=== PATIENT | female | born 2000 | race Caucasian/White ===

== ENCOUNTER 2021-07-11 15:16 | Emergency (ER) | payer SELFPAY ==
[~2021-07-11] VITALS: Ht 162.6 cm; Wt 94.5 kg
[2021-07-11 15:50] VITALS: TEMP 98.2
[2021-07-11] MEDS ORDERED: INDERAL 10MG10 MG PO (15:54)
[2021-07-11] MEDS ORDERED: PROZAC40 MG PO (15:54)
[2021-07-11 17:25] VITALS: BP 113/77; PULSE 98
== END 2021-07-11 17:25 | disposition home or self-care (01) ==
LOC: COL.ER 15:16
DX: R42 Dizziness and giddiness (principal); T43.225A Adverse effect of selective serotonin reuptake inhibitors, initial encounter; F32.A Depression, unspecified; F41.9 Anxiety disorder, unspecified; Z20.822 Contact with and (suspected) exposure to COVID-19

== ENCOUNTER 2021-10-30 23:11 | Emergency (ER) | payer OTHER ==
[~2021-10-30] VITALS: Ht 162.6 cm; Wt 90.9 kg
[~2021-10-30 23:11] MED LIST: INDERAL 10MG10 MG PO; PROZAC40 MG PO
[2021-10-30 23:27] VITALS: TEMP 98.3
[2021-10-31 01:48] VITALS: BP 118/81; PULSE 69
== END 2021-10-31 01:44 | disposition home or self-care (01) ==
LOC: COL.ER 23:11
DX: M79.662 Pain in left lower leg (principal); Z79.899 Other long term (current) drug therapy